=== PATIENT | female | born 1970 | race American Indian/Alaskan Native ===

== ENCOUNTER 2019-03-13 11:06 | Emergency (ER) | payer BC, OTHER ==
[2019-03-13 11:32] VITALS: BP 172/95
--- NOTE | 2019-03-13 11:36 | Emergency Department Report ---
ED Recheck HPI - General Chief Complaint: Medical Clearance Stated Complaint: HBP Time Seen by Provider: 03/13/19 11:31 Source: patient Mode of arrival: Ambulatory Limitations: No Limitations - History of Present Illness Initial Comments: This is a 48-year-old female nontoxic well in appearance with no signs of distress presents to the ED for medication refill. Stated is out of her blood pressure and insulin medication. Denies any headache. Patient denies any symptoms. Denies any fever, chills, headache, nausea, vomiting, chest pain or SOB. Denies any other complaints. Returns Today for: request for prescription Symptoms Since Prior Visit: no new symptoms Associated Symptoms: none. denies: fever, chills, chest pain, shortness of breath, rash, malaise, nasuea, abdominal pain - Related Data Home Medications Medication Instructions Recorded Confirmed Last Taken Aspirin [Aspirin BABY CHEW TAB] 81 mg PO QDAY 05/12/16 05/12/16 Unknown Potassium Chloride [K-Dur] 10 meq PO QDAY 05/12/16 05/12/16 Unknown Previous Rx's Medication Instructions Recorded Last Taken Type Insulin NPH Human Isophane 10 unit SQ QAM #10,000 unit 05/12/16 Unknown Rx [HumuLIN N] Insulin NPH Human Isophane 35 unit SQ QPM #30,000 unit 05/12/16 Unknown Rx [HumuLIN N] Lisinopril/Hydrochlorothiazide 1 tab PO QDAY #31 tablet 05/12/16 Unknown Rx [Zestoretic 20-25 mg] Metoprolol [Lopressor TAB] 100 mg PO BID #62 tablet 05/12/16 Unknown Rx amLODIPine [Norvasc] 10 mg PO DAILY #31 tablet 05/12/16 Unknown Rx Insulin NPH, Human [NovoLIN N] 30 unit SQ QHS 30 Days ml 03/13/19 Unknown Rx Losartan [Cozaar] 25 mg PO QDAY #30 tablet 03/13/19 Unknown Rx Metoprolol [Lopressor TAB] 100 mg PO BID #60 tablet 03/13/19 Unknown Rx amLODIPine [Norvasc] 10 mg PO DAILY #30 tab 03/13/19 Unknown Rx Allergies Allergy/AdvReac Type Severity Reaction Status Date / Time No Known Allergies Allergy Verified 05/12/16 08:43 ED Review of Systems ROS: Stated complaint: HBP Other details as noted in HPI Constitutional: denies: chills, fever Eyes: denies: eye pain, eye discharge, vision change ENT: denies: ear pain, throat pain Respiratory: denies: cough, shortness of breath, wheezing Cardiovascular: denies: chest pain, palpitations Endocrine: no symptoms reported Gastrointestinal: denies: abdominal pain, nausea, diarrhea Genitourinary: denies: urgency, dysuria, discharge Musculoskeletal: denies: back pain, joint swelling, arthralgia Skin: denies: rash, lesions Neurological: denies: headache, weakness, paresthesias Psychiatric: denies: anxiety, depression Hematological/Lymphatic: denies: easy bleeding, easy bruising ED Past Medical Hx - Past Medical History Previous Medical History?: Yes Hx Hypertension: Yes Hx Diabetes: Yes Additional medical history: high cholesterol - Surgical History Past Surgical History?: Yes Additional Surgical History: uterine fibroids. ruptured ovarian cyst - Social History Smoking Status: Former Smoker Substance Use Type: Alcohol - Medications Home Medications: Home Medications Medication Instructions Recorded Confirmed Last Taken Type Aspirin [Aspirin BABY CHEW TAB] 81 mg PO QDAY 05/12/16 05/12/16 Unknown History Insulin NPH Human Isophane 10 unit SQ QAM #10,000 unit 05/12/16 Unknown Rx [HumuLIN N] Insulin NPH Human Isophane 35 unit SQ QPM #30,000 unit 05/12/16 Unknown Rx [HumuLIN N] Lisinopril/Hydrochlorothiazide 1 tab PO QDAY #31 tablet 05/12/16 Unknown Rx [Zestoretic 20-25 mg] Metoprolol [Lopressor TAB] 100 mg PO BID #62 tablet 05/12/16 Unknown Rx Potassium Chloride [K-Dur] 10 meq PO QDAY 05/12/16 05/12/16 Unknown History amLODIPine [Norvasc] 10 mg PO DAILY #31 tablet 05/12/16 Unknown Rx Insulin NPH, Human [NovoLIN N] 30 unit SQ QHS 30 Days ml 03/13/19 Unknown Rx Losartan [Cozaar] 25 mg PO QDAY #30 tablet 03/13/19 Unknown Rx Metoprolol [Lopressor TAB] 100 mg PO BID #60 tablet 03/13/19 Unknown Rx amLODIPine [Norvasc] 10 mg PO DAILY #30 tab 03/13/19 Unknown Rx ED Physical Exam - General Limitations: No Limitations General appearance: alert, in no apparent distress - Head Head exam: Present: atraumatic, normocephalic - Neck Neck exam: Present: normal inspection, full ROM. Absent: tenderness, meningismus, lymphadenopathy - Respiratory Respiratory exam: Present: normal lung sounds bilaterally. Absent: respiratory distress, wheezes, rales, rhonchi, stridor, chest wall tenderness, accessory muscle use, decreased breath sounds, prolonged expiratory - Cardiovascular Cardiovascular Exam: Present: regular rate, normal rhythm, normal heart sounds. Absent: bradycardia, tachycardia, irregular rhythm, systolic murmur, diastolic murmur, rubs, gallop - Extremities Exam Extremities exam: Present: normal inspection, full ROM - Back Exam Back exam: Present: normal inspection, full ROM - Neurological Exam Neurological exam: Present: alert, oriented X3, normal gait - Psychiatric Psychiatric exam: Present: normal affect, normal mood - Skin Skin exam: Present: warm, dry, intact, normal color. Absent: rash ED Course - Reevaluation(s) Reevaluation #1: 03/13/19 11:34 Patient is speaking in full sentences with no signs of distress noted. ED Recheck MDM - Medical Decision Making Patient brought me a list of all medications refills and the MGs and frequency. Patient was instructed to Follow-up with a primary care doctor in 3-5 days or if symptoms worsen and continue return to emergency room as soon as possible. At time of discharge, the patient does not seem toxic or ill in appearance. No acute signs of distress noted. Patient agrees to discharge treatment plan of care. No further questions noted by the patient. Critical care attestation.: If time is entered above; I have spent that time in minutes in the direct care of this critically ill patient, excluding procedure time. ED Disposition Clinical Impression: Medication refill Disposition: [id number] TO HOME OR SELFCARE Is pt being admited?: No Does the pt Need Aspirin: No Condition: Stable Instructions: Hypertension (ED), Low Sodium Diet (ED) Additional Instructions: Follow-up with a primary care doctor in 3-5 days or if symptoms worsen and continue return to emergency room as soon as possible. Prescriptions: Insulin NPH, Human [NovoLIN N] 30 unit SQ QHS 30 Days ml Losartan [Cozaar] 25 mg PO QDAY #30 tablet Metoprolol [Lopressor TAB] 100 mg PO BID #60 tablet amLODIPine [Norvasc] 10 mg PO DAILY #30 tab Referrals: PRIMARY CARE, [Referring] - 3-5 Days GYPSY YOUNG MD [Staff Physician] - 3-5 Days [facility] [Outside] - 3-[address] [facility] [Outside] - 3-5 Days
== END 2019-03-13 11:55 | disposition home or self-care (01) ==
LOC: ED 11:06
DX: I10 Essential (primary) hypertension (principal); Z76.0 Encounter for issue of repeat prescription; E11.9 Type 2 diabetes mellitus without complications; E78.00 Pure hypercholesterolemia, unspecified; Z79.82 Long term (current) use of aspirin; Z79.899 Other long term (current) drug therapy; Z79.4 Long term (current) use of insulin; Z87.891 Personal history of nicotine dependence
CPT/HCPCS: 99282